=== PATIENT | male | born 1980 | race Two or more races ===

== ENCOUNTER 2018-11-01 08:35 | Outpatient (CLI) | payer OTHER | END 2018-11-01 23:59 | disposition home or self-care (01) | LOC: EDBD → CARD 08:35 | PROVIDERS: ATTEND Family Medicine | DX: G56.03 Carpal tunnel syndrome, bilateral upper limbs (principal); G58.8 Other specified mononeuropathies | CPT/HCPCS: 95886; 95908 ==